=== PATIENT | female | born 1990 | race Two or more races ===

== ENCOUNTER 2021-07-05 12:55 | Outpatient (CLI) | payer OTHER | END 2021-07-05 13:40 | disposition home or self-care (01) | LOC: PRENATAL 12:55 | PROVIDERS: ATTEND Obstetrics & Gynecology Maternal & Fetal Medicine | DX: O35.0XX0 Maternal care for (suspected) central nervous system malformation in fetus, not applicable or unspecified (principal); Z3A.17 17 weeks gestation of pregnancy ==

== ENCOUNTER 2021-07-25 13:51 | Outpatient (CLI) | payer OTHER | END 2021-07-25 15:04 | disposition home or self-care (01) | LOC: PRENATAL 13:51 | PROVIDERS: ATTEND Obstetrics & Gynecology Maternal & Fetal Medicine | DX: O35.0XX0 Maternal care for (suspected) central nervous system malformation in fetus, not applicable or unspecified (principal); O35.3XX0 Maternal care for (suspected) damage to fetus from viral disease in mother, not applicable or unspecified; Z3A.20 20 weeks gestation of pregnancy ==

== ENCOUNTER 2021-10-01 12:38 | Emergency (ER) | payer OTHER ==
[~2021-10-01] VITALS: Ht 149.9 cm; Wt 59.9 kg
[2021-10-01] MEDS ORDERED: PRENATAL + DHA1 EAC1 PO (12:52)
[2021-10-01] MEDS ORDERED: ADULT LOW DOSE81 M1 PO (12:52)
== END 2021-10-01 15:27 | disposition home or self-care (01) ==
LOC: ER 12:38
DX: O98.513 Other viral diseases complicating pregnancy, third trimester (principal); U07.1 COVID-19; Z3A.29 29 weeks gestation of pregnancy

== ENCOUNTER 2021-11-28 13:15 | Inpatient (IN) | payer OTHER ==
[~2021-11-28] VITALS: Ht 149.9 cm; Wt 3.2 kg
[~2021-11-28 13:15] MED LIST: ADULT LOW DOSE81 M1 PO; PRENATAL + DHA1 EAC1 PO
[2021-12-09] MEDS ORDERED: IRON325 MG PO (08:42)
[2021-12-09] MEDS ORDERED: PROGESTERONE200 MG (16:31)
[2021-12-09] MEDS ORDERED: FUSION PLUS CA1 EACH (16:31)
== END 2021-12-13 18:05 | disposition home or self-care (01) | DRG 788 ==
LOC: OB/GYN 12-09 05:35 → LDR 12-09 05:35 → OB/GYN 12-09 21:23
PROVIDERS: ADMIT Obstetrics & Gynecology; ATTEND Obstetrics & Gynecology
PROC: 3E033VJ Introduction of Other Hormone into Peripheral Vein, Percutaneous Approach (ICD-10-PCS; 2021-12-09)
PROC: 3E0P7VZ Introduction of Hormone into Female Reproductive, Via Natural or Artificial Opening (ICD-10-PCS; 2021-12-09)
PROC: 4A1HXCZ Monitoring of Products of Conception, Cardiac Rate, External Approach (ICD-10-PCS; 2021-12-09)
PROC: 10D00Z1 Extraction of Products of Conception, Low, Open Approach (ICD-10-PCS; principal; 2021-12-09 19:00)
DX: O61.0 Failed medical induction of labor (principal); O62.1 Secondary uterine inertia; Z3A.39 39 weeks gestation of pregnancy; Z37.0 Single live birth; Z20.822 Contact with and (suspected) exposure to COVID-19

== ENCOUNTER 2022-09-12 19:25 | Emergency (ER) | payer OTHER ==
[~2022-09-12] VITALS: Ht 149.9 cm; Wt 45.4 kg
[~2022-09-12 19:25] MED LIST changes: +FUSION PLUS CA1 EACH; +IRON325 MG PO; +PROGESTERONE200 MG
[2022-09-12] MEDS ORDERED: PEPCID AC10 MG PO (21:15)
[2022-09-12] MEDS ORDERED: INTESTINEX680 M1 PO (21:15)
== END 2022-09-12 21:24 | disposition home or self-care (01) ==
LOC: ER 19:25
DX: K52.9 Noninfective gastroenteritis and colitis, unspecified (principal); Z20.822 Contact with and (suspected) exposure to COVID-19

== ENCOUNTER 2023-06-26 12:20 | Emergency (ER) | payer OTHER ==
[~2023-06-26] VITALS: Ht 149.9 cm; Wt 45.4 kg
[~2023-06-26 12:20] MED LIST changes: +INTESTINEX680 M1 PO; +PEPCID AC10 MG PO
[2023-06-26 13:46] LABS: HEMATOCRIT 36.4 % (36.0-45.00); HEMOGLOBIN 12.5 g/dL (12.0-15.00); MEAN CELL VOLUME 87.4 fL (80.00-100.00); MEAN CORPUSCULAR HEMOGLOBIN 29.8 pg (27.00-32.0); MEAN CORPUSCULAR HGB CONC 34.2 g/dl (32.0-36.0); PLATELET COUNT 305 K/uL (150-450); RED BLOOD COUNT 4.17 M/uL (4.00-6.00); RED CELL DISTRIBUTION WIDTH 15.2 % (11.5-14.5)
== END 2023-06-26 17:12 | disposition home or self-care (01) ==
LOC: ER 12:20
PROVIDERS: Emergency Medicine
DX: O20.8 Other hemorrhage in early pregnancy (principal); Z3A.01 Less than 8 weeks gestation of pregnancy

== ENCOUNTER 2023-09-23 14:07 | Outpatient (CLI) | payer OTHER | END 2023-09-23 14:08 | disposition home or self-care (01) | LOC: PRENATAL 14:07 | PROVIDERS: ATTEND Obstetrics & Gynecology Maternal & Fetal Medicine | DX: O35.9XX0 Maternal care for (suspected) fetal abnormality and damage, unspecified, not applicable or unspecified (principal); O44.02 Complete placenta previa NOS or without hemorrhage, second trimester; O34.219 Maternal care for unspecified type scar from previous cesarean delivery; O99.891 Other specified diseases and conditions complicating pregnancy; Z3A.19 19 weeks gestation of pregnancy ==

== ENCOUNTER → 2023-12-23 13:26 | Outpatient (CLI) | payer OTHER | END | disposition home or self-care (01) | LOC: PRENATAL 13:26 | PROVIDERS: ATTEND Obstetrics & Gynecology Maternal & Fetal Medicine | DX: O26.849 Uterine size-date discrepancy, unspecified trimester (principal); O36.8199 Decreased fetal movements, unspecified trimester, other fetus; O34.219 Maternal care for unspecified type scar from previous cesarean delivery; O99.891 Other specified diseases and conditions complicating pregnancy; Z3A.32 32 weeks gestation of pregnancy ==

== ENCOUNTER 2024-01-28 11:54 | Inpatient (IN) | payer OTHER ==
[~2024-01-28] VITALS: Ht 149.9 cm; Wt 61.2 kg
[2024-01-28 13:10] LABS: HEMATOCRIT 35.6 % (36.0-45.00); HEMOGLOBIN 12.4 g/dL (12.0-15.00); MEAN CELL VOLUME 95.1 fL (80.00-100.00); MEAN CORPUSCULAR HGB CONC 34.7 g/dl (32.0-36.0); PLATELET COUNT 324 K/uL (150-450); RED BLOOD COUNT 3.75 M/uL (4.00-6.00); RED CELL DISTRIBUTION WIDTH 13.9 % (11.5-14.5)
[2024-01-28 13:14] LABS: PH,URINE 6.5 (5.0-8.0); URINE APPEARANCE Cloudy; URINE BILIRRUBIN Negative (NEGATIVE); URINE BLOOD Negative; URINE COLOR Yellow; URINE GLUCOSE Negative (NEGATIVE); URINE KETONE Trace (NEGATIVE); URINE LEUKOCYTE Moderate; URINE NITRATE Negative; URINE PROTEIN Negative (NEGATIVE); URINE UROBILINOGEN 0.2 E.U./dl
[2024-01-28 13:18] LABS: URINE BACTERIA 4600.2 uL (0.0-1933); URINE CAST 1.52 uL (0.0-1.40); URINE EPITHELIAL CELLS 149.8 uL (0.0-38.8); URINE RBC 2.1 uL (0.0-20.8); URINE WBC 314.3 uL (0.0-23.2)
[2024-01-28 13:29] LABS: INR < 0.93; PROTHROMBIN TIME 9.8 SECONDS (9.0-11.5)
[2024-01-28 14:19] LABS: ALBUMIN 3.2 gm/dL (3.4-5.0); BILIRUBIN TOTAL 0.33 mg/dL (0.3-1.2); CREATININE SERUM 0.45 mg/dL (0.55-1.02); GFR 161.47; POTASSIUM 3.91 mEq/L (3.5-5.1); TOTAL PROTEIN 7.2 gm/dL (6.4-8.2)
[2024-01-28 14:40] LABS: RH POSITIVE
[2024-02-08] MEDS ORDERED: CHILDREN'S ASPI81 MG PO (09:06)
[2024-02-08 09:08] VITALS: BP 105/67
[2024-02-08] MEDS ORDERED: RINGERS SOLUTION,LACTATED 1,000 ML IV SCH (21:00)
[2024-02-08] MEDS ORDERED: METOCLOPRAMIDE HCL 5 MG/ML VIAL IV SCH (21:00)
[2024-02-08] MEDS ORDERED: ONDANSETRON HCL 2 MG/ML VIAL IV PRN (21:00)
[2024-02-08] MEDS ORDERED: SENNOSIDES 1 TAB TABLET PO SCH (21:00)
[2024-02-08] MEDS ORDERED: MORPHINE SULFATE 4 MG/ML CARTRIDGE IV PRN (21:00)
[2024-02-08] MEDS ORDERED: OXYTOCIN 1,000 ML IV SCH (21:00)
[2024-02-08] MEDS ORDERED: SIMETHICONE 125 MG CAPSULE PO SCH (21:00)
[2024-02-08] MEDS ORDERED: OXYTOCIN 10 UNITS/ML VIAL IV ONE (21:15)
[2024-02-08] MEDS ORDERED: ERYTHROMYCIN BASE OPHT 1GM EACH TUBE OP ONE (21:15)
[2024-02-08] MEDS ORDERED: MORPHINE SULFATE 4 MG/ML VIAL IV ONE (22:25)
[2024-02-09] MEDS ORDERED: KETOROLAC TROMETHAMINE 30 MG VIAL IV SCH
[2024-02-09] MEDS ORDERED: MORPHINE SULFATE 4 MG/ML VIAL IV ONE (00:40)
[2024-02-09 01:20] VITALS: BP 100/60
[2024-02-09 06:49] LABS: HEMATOCRIT 29.6 % (36.0-45.00); HEMOGLOBIN 10.4 g/dL (12.0-15.00); MEAN CELL VOLUME 92.7 fL (80.00-100.00); MEAN CORPUSCULAR HEMOGLOBIN 32.6 pg (27.00-32.0); MEAN CORPUSCULAR HGB CONC 35.2 g/dl (32.0-36.0); PLATELET COUNT 245 K/uL (150-450); RED BLOOD COUNT 3.19 M/uL (4.00-6.00); RED CELL DISTRIBUTION WIDTH 13.9 % (11.5-14.5)
[2024-02-09 08:33] VITALS: BP 92/61
[2024-02-09] MEDS ORDERED: IBUprofen 800 MG TABLET PO SCH (09:00)
[2024-02-09] MEDS ORDERED: ACETAMINOPHEN 500 MG GEL..CAP PO SCH (12:00)
[2024-02-09 16:05] VITALS: BP 100/61
[2024-02-09 20:14] VITALS: BP 109/70
[2024-02-10 01:14] VITALS: BP 92/61
[2024-02-10 08:51] VITALS: BP 124/66
[2024-02-10 13:31] VITALS: BP 100/54
[2024-02-10 16:12] VITALS: BP 105/69
[2024-02-10] MEDS ORDERED: SIMETHICONE125 M1 PO (16:13)
[2024-02-10] MEDS ORDERED: COLACE100 MG PO (16:13)
[2024-02-10] MEDS ORDERED: IBU800 MG PO (16:15)
== END 2024-02-10 17:07 | disposition home or self-care (01) | DRG 785 ==
LOC: OB/GYN 02-08 07:00 → O/R 02-08 16:26 → OB/GYN 02-08 21:42
PROVIDERS: ADMIT Obstetrics & Gynecology; ATTEND Obstetrics & Gynecology
PROC: 0UB70ZZ Excision of Bilateral Fallopian Tubes, Open Approach (ICD-10-PCS; 2024-02-08)
PROC: 4A1HXCZ Monitoring of Products of Conception, Cardiac Rate, External Approach (ICD-10-PCS; 2024-02-08)
PROC: 10D00Z1 Extraction of Products of Conception, Low, Open Approach (ICD-10-PCS; principal; 2024-02-08 07:00)
DX: O34.211 Maternal care for low transverse scar from previous cesarean delivery (principal); Z3A.38 38 weeks gestation of pregnancy; Z30.2 Encounter for sterilization; Z37.0 Single live birth; Z20.822 Contact with and (suspected) exposure to COVID-19